=== PATIENT | male | born 2000 | race Caucasian/White ===

== ENCOUNTER 2021-02-12 21:33 | Emergency (ER) | payer OTHER, SELFPAY ==
[2021-02-12 22:08] VITALS: BP 134/86; PULSE 92; RESP 18; TEMP 36.3; O2SAT 99
--- NOTE | 2021-02-12 23:34 | ED.GENADULT ---
HPI - General Adult General Chief complaint: Wound/Laceration Stated complaint: lac to left index finger- tetanus utd Time Seen by Provider: 02/12/21 23:34 History of Present Illness HPI narrative: healthy 20 yo male presents to the ED for a finger laceration. He was cleaning a wine glass at work when the stem boke and caused a small laceration to his left index finger. He initially had some difficulty controlling the bleeding, it has since stopped. He has minimal pain. Up to date on tetanus. He says that he is not concerned about the cut, but his work asked him to come get it looked at. Review of Systems Constitutional: Constitutional: Reports no additional constitutional complaints Cardiovascular: Cardiovascular: Reports no additional cardiovascular complaints Respiratory: Respiratory: Reports no additional respiratory complaints Gastrointestinal: Gastrointestinal: Reports no additional gastrointestinal complaints Neurologic: Reports system reviewed and no additional complaints, except as documented Hematologic/Lymphatic: Hematologic/Lymphatic: Denies easy bleeding and Denies easy bruising PMFSH Social History Social History Smoking status: Never smoker Exam Const: General: healthy appearing, no acute distress and alert Nutritional Appearance: well nourished Orientation/consciousness: patient oriented x3 HENMT: Head: normal to inspection Resp: Effort & Inspection: normal respiratory effort Cardio: Other: brisk distal capillary refill Skin: Other: 1 cm superficial laceration to left index finger. no bleeding, no foreign body Neuro: General: patient oriented x3 Speech: normal speech Extrem: Other: full ROM Course Vital Signs Vital signs: Vital Signs Temperature 36.3 C L 02/12/21 22:08 Pulse Rate 92 02/12/21 22:08 Respiratory Rate 18 02/12/21 22:08 Blood Pressure 134/86 02/12/21 22:08 Pulse Oximetry 99 02/12/21 22:08 Temperature 36.3 C L 02/12/21 22:08 Pulse Rate 92 02/12/21 22:08 Respiratory Rate 18 02/12/21 22:08 Blood Pressure 134/86 02/12/21 22:08 Pulse Oximetry 99 02/12/21 22:08 Medical Decision Making MDM Narrative Medical decision making narrative: superficial laceration. Offered 1 stitch to help prevent rebleeding. He said that he would rather not if it is not necessary. Vital Signs Vital Signs: Vital Signs Temperature 36.3 C L 02/12/21 22:08 Pulse Rate 92 02/12/21 22:08 Respiratory Rate 18 02/12/21 22:08 Blood Pressure 134/86 02/12/21 22:08 Pulse Oximetry 99 02/12/21 22:08 Temperature 36.3 C L 02/12/21 22:08 Pulse Rate 92 02/12/21 22:08 Respiratory Rate 18 02/12/21 22:08 Blood Pressure 134/86 02/12/21 22:08 Pulse Oximetry 99 02/12/21 22:08 Discharge Plan Discharge Clinical Impression: Finger laceration Qualifiers: Encounter type: initial encounter Finger: index finger Damage to nail status: without damage Foreign body presence: without foreign body Laterality: left Qualified Code(s): S61.211A - Laceration without foreign body of left index finger without damage to nail, initial encounter Patient Disposition: Home, Self-Care Condition: Stable Instructions: Laceration (ED) Follow-up/Referrals: PHYSICIAN NOT ON STAFF,NONSTAFF [Non-Staff] - Ronald Romero MD [Physician] -
== END 2021-02-13 00:18 | disposition home or self-care (01) ==
PROVIDERS: Emergency Provider Emergency Medicine
DX: S61.211A Laceration without foreign body of left index finger without damage to nail, initial encounter (principal); W25.XXXA Contact with sharp glass, initial encounter; Y93.G1 Activity, food preparation and clean up
CPT/HCPCS: 99282

== ENCOUNTER 2023-07-11 09:12 | Emergency (ER) | payer OTHER, SELFPAY ==
[2023-07-11 09:20] VITALS: BP 133/86; PULSE 79; RESP 20; TEMP 36.9; O2SAT 100
--- NOTE | 2023-07-11 09:32 | ED.GENADULT ---
HPI - General Adult General Chief complaint: Skin/Abscess/Foreign Body Stated complaint: Rash on head/eye Time Seen by Provider: 07/11/23 09:32 Source: patient Mode of arrival: ambulatory Limitations: no limitations History of Present Illness HPI narrative: 23-year-old male presented for complaint of itchy red raised rash to the right eyelid, forehead, and scalp. Spreading over1 week. endorses itching and mild pain. Denies drainage or blisters. patient applied a friend skin cream products after rash started. Denies lip, tongue, or throat swelling, shortness of breath or wheezing. Denies changes to soap, detergent, lotion, or any other exposures. No one else in the house or any contacts with similar symptoms. Denies any other locations of rash on body. Denies hx chicken pox. Denies recent illness or stress. Related Data Allergies Allergy/AdvReac Type Severity Reaction Status Date / Time No Known Allergies Allergy Verified 07/11/23 09:34 Review of Systems Review of Systems: CONSTITUTIONAL: Denies body aches, fever, chills, or sweats. EYES: Denies visual changes, redness, or discharge. ENT: Denies rhinorrhea, congestion CARDIOVASCULAR: Denies chest pain, palpitations, or edema. RESPIRATORY: Denies cough or dyspnea. GASTROINTESTINAL: Denies abdominal pain, nausea, vomiting, or diarrhea. SKIN: Reports rash on face and scalp MUSCULOSKELETAL: Denies back pain, joint pain, or myalgia. NEUROLOGIC: Denies headache, numbness, tingling, or weakness. [facility] Past Medical History Medical History (Updated 07/11/23 @ 09:48 by Cecilia Sprague APRN) No pertinent past medical history Social History Social History Smoking status: Never smoker Comments At time of signature, I have reviewed and agree with nursing past medical, surgical, social and family history unless otherwise noted. Please see nursing chart for further information. There is no relevant family history pertinent to the presenting complaint Exam Narrative: GENERAL: Well-appearing HEAD: Normocephalic, atraumatic. EYES: conjunctivae clear, and EOMI. No swelling or drainage. ENT: Mucous membranes moist. Oropharynx without edema, erythema or lesions. NECK: Supple. No lymphadenopathy CHEST: Clear to auscultation. HEART: Regular rate and rhythm. SKIN: Warm, dry. Erythematous raised vesicles to right parietal scalp, right forehead, and right upper eyelid. Nontender, no drainage, fluctuance or induration. Bruising to right upper eyelid, which he states is r/t hitting his eye on someones head. NEURO: Alert and oriented x3. Course Course Emergency Course: Patient is aware of diagnosis, understands and agrees to treatment plan. Anticipatory guidance given. Patient agrees to follow-up as directed and is aware of reasons to seek care at the emergency department. Portions of this record may have been created with voice recognition software Level of Care: Express Care Visit Vital Signs Vital signs: Vital Signs Temperature 98.5 F 07/11/23 09:20 Pulse Rate 79 07/11/23 09:20 Respiratory Rate 20 07/11/23 09:20 Blood Pressure 133/86 07/11/23 09:20 Pulse Oximetry 100 07/11/23 09:20 Oxygen Delivery Room Air 07/11/23 09:20 Temperature 98.5 F 07/11/23 09:20 Pulse Rate 79 07/11/23 09:20 Respiratory Rate 20 07/11/23 09:20 Blood Pressure 133/86 07/11/23 09:20 Pulse Oximetry 100 07/11/23 09:20 Oxygen Delivery Room Air 07/11/23 09:20 Reviewed Medical Decision Making MDM Narrative Medical decision making narrative: Discussed physical exam findings and possible etiologies. Patient denies hx chicken pox, and site are nontender. Given onset one week, will send Rx steroid. given Advised supportive measures and signs/symptoms to go to the ER. Pt is appropriate for outpt treatment and f/u. Provided list of pcps. Differential Diagnosis Differential Diagnosi
== END 2023-07-11 09:47 | disposition home or self-care (01) ==
PROVIDERS: Emergency Provider Nurse Practitioner Family
DX: L30.9 Dermatitis, unspecified (principal)
CPT/HCPCS: 99213; G0463